=== PATIENT | male | born 1960 | race Caucasian/White ===

== ENCOUNTER → 2018-02-15 | Outpatient (CLI) | payer BC ==
--- NOTE | 2018-02-15 17:51 | RAD ---
Exam: Lumbar spine AP and lateral views History: 57-year-old male with low back pain and radiculopathy. Comparison: None Findings: Five [id number] lumbar type vertebral bodies are seen. Vertebral body alignment is anatomic. Mil d narrowing of the L4-5 disc space is present. The other lumbar disc spaces are maintained. There is mild loss of anterior vertebral body height at the L1 level. Age of this finding is indeterminate. Impression: 1. Mild narrowing of the L4-5 disc space. 2. Mild loss of anterior vertebral body height at the L1 level. Age of this finding is indeterminate however. Reported By:
== END ==
LOC: RAD 16:19
PROVIDERS: ATTEND Nurse Practitioner Family
DX: M54.17 Radiculopathy, lumbosacral region (principal); M79.604 Pain in right leg; M79.605 Pain in left leg
CPT/HCPCS: 72100